=== PATIENT | female | born 1950 | race Caucasian/White ===

== ENCOUNTER → 2017-01-05 | Outpatient (CLI) | payer MEDICARE, OTHER | END | disposition short-term general hospital (02) | LOC: CLPULM 11:19 | DX: J44.9 Chronic obstructive pulmonary disease, unspecified (principal) ==

== ENCOUNTER → 2017-01-28 | Outpatient (CLI) | payer MEDICARE, OTHER | END | disposition short-term general hospital (02) | LOC: CLVASC 12:18 | DX: I83.90 Asymptomatic varicose veins of unspecified lower extremity (principal); R20.0 Anesthesia of skin; L29.9 Pruritus, unspecified ==